=== PATIENT | female | born 1995 | race Caucasian/White ===

== ENCOUNTER → 2016-10-26 | Outpatient (CLI) | payer BC | END | disposition home or self-care (01) | LOC: C.PAPS 08:39 | PROVIDERS: ATTEND Obstetrics & Gynecology | DX: Z01.419 Encounter for gynecological examination (general) (routine) without abnormal findings (principal) ==

== ENCOUNTER → 2016-10-26 | Outpatient (CLI) | payer BC ==
[2016-10-30 11:34] LABS: CHLAMYDIA TRACH RNA*** NOT DETECTED (NOT DETECTED); GC (NEIS GONORRHOEAE)RNA** NOT DETECTED (NOT DETECTED)
== END | disposition home or self-care (01) ==
LOC: C.LABSPEC 17:55
PROVIDERS: ATTEND Obstetrics & Gynecology
DX: Z01.419 Encounter for gynecological examination (general) (routine) without abnormal findings (principal)

== ENCOUNTER 2018-08-09 10:47 | Observation (INO) ==
--- NOTE | 2018-08-04 13:27 | PAT Medication Instructions ---
Medication Instructions Date of Service August 04, 2018 Home Medications ibuprofen 200 mg PO QID NEEDED ASK your surgeon for instructions ibuprofen 200 mg PO QID NEEDED Take morning of surgery NOTHING TO EAT OR DRINK AFTER MIDNIGHT Other Notes If you have any questions please call us at [phone] or [phone] or [phone] or [phone]
--- NOTE | 2018-08-04 13:31 | Anesthesiology Consultation ---
Date of Service August 04, 2018 Assessment & Plan (1) Encounter for pre-operative examination: Chart Review Chart Review: Patient seen in Pre Admission Testing Teaching & Discussion Pre-Anesthesia Teaching/Discussion Notes: Instructed NPO after midnight before surgery, except medications with 15 cc of water. Medication instructions provided according to the PAT guidelines. History Surgery Operation Date: 08/09/18 07:30 Proposed Procedures p Bilateral Reduction Mammoplasty - Daphney Lee MD Height/Weight Height: 5 ft Weight: 65.771 kg Allergies Allergy/AdvReac Type Severity Reaction Status Date / Time No Known Allergies Allergy Mild Unverified 07/28/18 13:23 Medications Home Medications Medication Instructions Recorded Confirmed Last Taken ibuprofen 200 mg PO QID PRN 07/28/18 07/28/18 Unknown Past Medical History Medical History PCOS (polycystic ovarian syndrome) Past Surgical History Surgical History History of tonsillectomy History of wisdom tooth extraction Social History Smoking Status: Never smoker Do You Dip or Chew Tobacco: No Hx Alcohol Use: Yes Alcohol type: wine alcohol intake frequency: a few times a month Hx Substance Use: No substance use type: does not use Review of Systems Patient denies chest pain, shortness of breath, dyspnea on exertion, joint pain, reflux, cough, wheezing, palpitations. Physical Exam Vital Signs BP: P: R: T: SPO2:
--- NOTE | 2018-08-04 13:51 | Anesthesiology Consultation ---
Date of Service August 04, 2018 Assessment & Plan (1) Encounter for pre-operative examination: Chart Review Chart Review: Acceptable Risk for Surgery and Patient seen in Pre Admission Testing Consults Requested none Teaching & Discussion Pre-Anesthesia Teaching/Discussion Notes: Instructed NPO after midnight before surgery, except medications with 15 cc of water. Medication instructions provided according to the PAT guidelines. History Surgery Operation Date: 08/09/18 07:30 Proposed Procedures p Bilateral Reduction Mammoplasty - Daphney Lee MD Height/Weight Height: 5 ft Weight: 71.2 kg Allergies Allergy/AdvReac Type Severity Reaction Status Date / Time No Known Allergies Allergy Mild Unverified 07/28/18 13:23 Medications Home Medications Medication Instructions Recorded Confirmed Last Taken ibuprofen 200 mg PO QID PRN 07/28/18 07/28/18 Unknown Past Medical History Medical History PCOS (polycystic ovarian syndrome) Exercise / Class Metabolic Activity II 4-5 Yardwork/Stairs/Walk up hill (30 minutes of walking/running per day. Able to climb FOS. Denies CP or SOB. ) Past Surgical History Surgical History History of tonsillectomy History of wisdom tooth extraction Past Anesthesia History No Hx of Anesthesia Complications and No Family Hx of Anesthesia Complications History of PONV No Hx of PONV and Hx of Motion Sickness Social History Smoking Status: Never smoker Do You Dip or Chew Tobacco: No Hx Alcohol Use: Yes Alcohol type: wine alcohol intake frequency: a few times a month Hx Substance Use: No substance use type: does not use Review of Systems Patient denies chest pain, shortness of breath, dyspnea on exertion, reflux, cough, wheezing, palpitations. +Joint Pain (Knees) Physical Exam Vital Signs BP: 132/64 P: 86 R: 14 T: 98.6 SPO2: 99% on RA ENMT Thyromental Distance: > or= 3.5 Finger Breadths (3.5) Mallampati Class: I Permanent retainer Neck normal visual inspection and trachea midline; neck extension not limited Respiratory normal respiratory effort Auscultation: lungs clear to auscultation bilaterally Cardiovascular Rate/Rhythm: regular rate and regular rhythm Heart Sounds: no murmur Vessels: no carotid bruit Neurologic moves all extremities Psychiatric Orientation: alert and oriented x 3 Testing Laboratory Results 08/04/18 14:00 08/04/18 14:00 08/04/18 14:00 PT 10.4 INR 1.0 APTT 26.8
[2018-08-04 14:48] LABS: Basophils # (auto) 0.01 K/uL (0-0.2); Basophils % (auto) 0.2 %; Eosinophils # (auto) 0.02 K/uL (0-0.5); Eosinophils % (auto) 0.3 %; Hemoglobin 12.4 g/dL (12.0-16.0); Immature Granulocytes # (auto) 0.01 K/uL (0.00-0.02); Immature Granulocytes % (auto) 0.2 %; Lymphocytes # (auto) 1.78 K/uL (1.2-3.4); Lymphocytes % (auto) 27.6 %; Mean Corpuscular Hgb Conc 33.5 g/dL (32-36); Mean Corpuscular Volume 86.2 fL (80-100); Mean Platelet Volume 10.7 fL (7.4-10.4); Monocytes % (auto) 6.2 %; Neutrophils # (auto) 4.24 K/uL (1.4-6.5); Neutrophils % (auto) 65.5 %; Platelet Count 311 K/uL (130-400); RDW Coefficient of Variation 12.9 % (11.5-14.5); Red Blood Count 4.29 M/uL (4.2-5.4); White Blood Count 6.46 K/uL (4.8-10.8)
[2018-08-04 14:56] LABS: Partial Thromboplastin Time 26.8 Seconds (21.0-31.0); Prothrombin Time 10.4 Seconds (9.0-12.0)
[2018-08-04 15:06] LABS: BUN Creatinine Ratio 22.1 (10-20); Calcium 9.7 mg/dl (8.5-10.1); Creatinine Clr Calc Pharmacy 100.5 ml/min; Est GFR (African American) 127.2; Est GFR (Non-African American) 109.8; Potassium 3.7 mmol/L (3.5-5.1)
[~2018-08-09 10:47] MED LIST: CEFAZOLIN 2000MG 2,000 MG/15 ML SYR IV SCH; GLYCOPYRROLATE 0.2 MG/ML VIAL ONE; LARYING-O-JET KIT (LTA) ONE; LIDOCAINE HCL 2% 2 ML VIAL/AMP(20MG/ML) INFIL ONE; LR 15ML/HR IV SCH; MIDAZOLAM HCL 1 MG/ML 2ML VIAL ONE; NEOSTIGMINE METHYLSULFATE 5 MG/5 ML SYR ONE; ONDANSETRON INJ 2 MG/ML 2 ML VIAL ONE; PHENYLEPHRINE 100MCG/ML 5ML SYR ONE; PHENYLEPHRINE HCL 10 MG/ML VIAL ONE; PROPOFOL IV EMULSION 10 MG/ML 20 ML VIAL IV ONE; ROCURONIUM BROMIDE 10 MG/ML 5 ML VIAL ONE; ePHEDrine sulfate 50 MG/ML SYR ONE; fentaNYL citrate 100 MCG/2 ML VIAL ONE
[2018-08-09] MEDS ORDERED: SCOPOLAMINE 1.5 MG TDSY TD ONE (11:31)
[2018-08-09] MEDS ORDERED: HYDROmorphone INJ 1 MG/ML SYRINGE IV PRN (11:31)
[2018-08-09] MEDS ORDERED: fentaNYL citrate 100 MCG/2 ML VIAL IV PRN (11:31)
[2018-08-09] MEDS ORDERED: ePHEDrine sulfate 50 MG/ML AMP IV PRN (11:31)
[2018-08-09] MEDS ORDERED: ATROPINE SULFATE 0.1 MG/ML 10ML SYR IV PRN (11:31)
[2018-08-09] MEDS ORDERED: ONDANSETRON INJ 2 MG/ML 2 ML VIAL IV PRN ×2 (11:31→17:23)
[2018-08-09] MEDS ORDERED: SCOPOLAMINE 1.5 MG TDSY ONE (11:39)
--- NOTE | 2018-08-09 12:20 | History & Physical Bridge Note ---
Date of Service August 09, 2018 History & Physical Bridge Note I have examined the patient, reviewed the History & Physical and in the interval since the performance of the History & Physical I have noted the following changes of clinical significance: no changes noted
[2018-08-09] MEDS ORDERED: LIDOCAINE/EPINEPHRINE 1% 20 ML VIAL ONE (12:21)
[2018-08-09] MEDS ORDERED: BUPIVACAINE 0.25% 30 ML VIAL ONE (12:21)
[2018-08-09] MEDS ORDERED: fentaNYL citrate 100 MCG/2 ML VIAL ONE (13:07)
[2018-08-09] MEDS ORDERED: ACETAMINOPHEN 1000 MG/100 ML IV IV ONE (13:11)
--- NOTE | 2018-08-09 15:58 | Post Operative Brief Note ---
Immediate Post Op Note v1 Date of Surgery August 09, 2018 Pre & Post Diagnosis Operation Date: 08/09/18 11:50 Pre-Op Diagnosis: Symptomatic Bilateral Macromastia Post-Op Diagnosis: Symptomatic Bilateral Macromastia Procedure Operation Date: 08/09/18 11:50 Actual Procedures p Bilateral Reduction Mammoplasty(Not Applicable) - Daphney Lee MD Surgeon Daphney Lee MD Framing Machine Tender Elda Brennan PA-C Estimated Blood Loss 25 Findings Consistent with Post-Op Diagnosis Drains [place] Drain (bilateral, 15fr x2)
[2018-08-09] MEDS ORDERED: PROPOFOL IV EMULSION 10 MG/ML 20 ML VIAL IV ONE (15:59)
--- NOTE | 2018-08-09 16:00 | Operative Report ---
Post Operative Report Pre & Post Diagnosis Operation Date: 08/09/18 11:50 Pre-Op Diagnosis: Symptomatic Bilateral Macromastia Post-Op Diagnosis: Symptomatic Bilateral Macromastia Procedure Operation Date: 08/09/18 11:50 Actual Procedures p Bilateral Reduction Mammoplasty(Not Applicable) - Daphney Lee MD Surgeon Daphney Lee MD Belt Back Operator Elda Brennan PA-C Estimated Blood Loss 25 Findings Consistent with Post-Op Diagnosis Specimens left breast 692 grams, right breast 566 grams to pathology Drains JPx2 Anesthesia Type General Complications none Indications back, neck and shoulder pain due to macromastia Description of Procedure The risks, benefits, and alternatives of the procedure were explained to the patient who agreed and signed consent. She was identified and marked in the preoperative holding area. She was brought to the operating room where she was positioned supine and placed under general anesthesia without incident. Surgical site was prepped and draped sterilely. A time-out procedure was performed. I began with the left side. Markings were reassessed and a 7 cm pedicle was marked. 1% lidocaine with epinephrine was used to anesthetize the planned incisions. A 38 mm cookie cutter was used to circumscribe the nipple-areolar complex. The previously marked 7 cm pedicle was incised using a 15 blade scalpel and deepithelized. I began with the medial dissection of the pedicle using electrocautery. Cautery was used to incise through dermis and breast parenchyma down to the chest wall, taking care not to undermine the pedicle during dissection. A similar procedure was undertaken on the lateral aspect of the pedicle again taking care not to undermine. Lastly, the pedicle was dissected out superiorly using electrocautery and this was carried down to the chest wall as well. I then began with excision of the medial breast tissue followed by lateral aspect of the breast tissue and surrounding keyhole incision. A 15 blade scalpel was used to make the inframammary fold incision and electrocautery was used to deepen the incision through dermis and breast parenchyma. Dissection was then carried superiorly to the level of the superior incision. Superior incision was then incised using a 15 blade scalpel and again dissected using electrocautery. This was undertaken laterally and then around the keyhole portion of the incision. Care was taken t o leave some fat on the lateral pectoralis fascia in order to protect the T4 intercostal nerve. Hemostasis was achieved with electrocautery. The specimen was passed off in its entirety for weighing. Additional resection was undertaken from the superior flap in order to facilitate closure of the breast and to provide the best shape. The total resection weight of the left breast was 692 grams. The wound was irrigated with saline and hemostasis was achieved with electrocautery. 0.25% Marcaine plain was used to anesthetize the incisions as well as the pectoralis fascia. A 15 Syriac Sergey drain was brought out through a separate stab incision. The nipple-areolar complex was brought into the keyhole using 2-0 Vicryl deep dermal suture. The wound was closed first in a lateral to mid breast direction and then medial to mid breast direction using 2-0 Vicryl deep dermal sutures. Vertical limb was also approximated using 2-0 Vicryl deep dermals and the nipple-areolar complex was inset using 2-0 Vicryl deep dermal sutures. Next, the superficial dermal layer was closed using 2-0 PDO running Quill suture along the inframammary fold and 3-0 PDS interrupted dermal sutures along the vertical limb and nipple- areolar complex. Lastly 3-0 Monocryl running subcuticular suture was placed. A similar procedure was undertaken on the right side with maximal excision weight of 566 grams. Breasts were symmetric and nipple-areolar complexes were viable bilaterally following wound closure. Dermabond Prineo was applied along the inframammary fold and vertical limb and Dermabond was placed around the nipple-areolar complex. Dry dressings and a surgical bra were placed. The patient was awakened and transferred to recovery room in satisfactory condition. Elda Brennan PA-C was present and scrubbed throughout the procedure and was instrumental in providing retraction during dissection of the pedicle and assisting in wound closure. I attest to the content of the Intraoperative Record and any orders documented therein. Any exceptions are noted below.
[2018-08-09] MEDS ORDERED: ONDANSETRON INJ 2 MG/ML 2 ML VIAL ONE (16:31)
[2018-08-09] MEDS ORDERED: ONDANSETRON INJ 2 MG/ML 2 ML VIAL IV STA (16:41)
--- NOTE | 2018-08-09 16:57 | Anesthesiology Progress Note ---
Date of Service August 09, 2018 Anesthesia Post Procedure Vital Signs Vital Signs: Temp Pulse Pulse Resp BP Pulse Ox 08/09/18 16:49 61 16 100/49 L 100 08/09/18 16:39 36.1 C L 63 16 94/51 L 100 08/09/18 16:30 64 16 96/54 L 100 08/09/18 16:20 67 16 96/55 L 100 08/09/18 16:10 36.0 C L 104 H 16 116/64 100 08/09/18 11:10 36.9 C 104 H 18 116/84 99 Pain Intensity Bilateral Breast: Pain Intensity: 2 Transfer of Care Handoff Completed per policy Notes Mental Status: alert / awake / arousable and participated in evaluation Patient Amnestic to Procedure: Yes Nausea / Vomiting: adequately controlled Pain: adequately controlled Airway Patency, RR, SpO2: stable & adequate BP & HR: stable & adequate Hydration State: stable & adequate Anesthetic Complications: no major complications apparent and Pt Satisfied with anesthetic care
[2018-08-09] MEDS ORDERED: PROMETHAZINE HCL 12.5 MG in SODIUM CHLORIDE 0.9% 50 ML IV PRN (17:23)
[2018-08-09] MEDS ORDERED: MoRPHine SULFATE 10 MG/ML CARP/VIAL IV PRN (17:23)
[2018-08-09] MEDS ORDERED: ACETAMINOPHEN 325 MG TAB PO PRN (17:23)
[2018-08-09] MEDS ORDERED: DiphenhydrAMINE HCL 50 MG/ML VIAL IV PRN (17:23)
[2018-08-09] MEDS ORDERED: MoRPHine SULFATE 4 MG/ML 1 ML CARP\\VIAL IV PRN (17:23)
[2018-08-09] MEDS ORDERED: MoRPHine SULFATE 2 MG/ML CARP IV PRN (17:23)
[2018-08-09] MEDS ORDERED: OXYCODONE/ACETAMINOPHEN 5mg/325mg TAB PO PRN ×2 (17:23)
[2018-08-09] MEDS ORDERED: OXAZEPAM 10 MG CAPSULE PO PRN (17:23)
[2018-08-09] MEDS: CHECK SCOPOLAMINE PATCH PLACEMENT SCH (17:59)
[2018-08-09] MEDS ORDERED: D5W AND 1/2NSS + 20MEQ KCL 20 MEQ/1,000 ML BAG IV SCH (18:00)
[2018-08-09] MEDS: CEFAZOLIN 2000MG 2,000 MG/15 ML SYR IV SCH (21:38)
[2018-08-10] MEDS: CHECK SCOPOLAMINE PATCH PLACEMENT SCH ×2 (00:29→09:02)
[2018-08-10] MEDS: CEFAZOLIN 2000MG 2,000 MG/15 ML SYR IV SCH (05:59)
--- NOTE | 2018-08-10 08:05 | Surgery Progress Note ---
Date of Service August 10, 2018 Assessment & Plan (1) Breast hypertrophy: s/p bilateral breast reduction POD#1. Patient feeling well. Drains removed. D/C home today with office f/u tomorrow Subjective Patient resting comfortably. Has excellent pain control. Is ambulating and tolerating a regular diet. Physical Exam Constitutional: WD/WN, vitals as above no acute distress Skin: + incision (CDI, nipples viable ) Results & Data Vital Signs (Past 12 Hours) Vital Signs Temp Pulse Resp BP BP Pulse Ox 08/10/18 07:21 36.9 C 80 16 92/64 L 96 08/10/18 04:10 37.2 C 71 18 93/60 L 95 08/09/18 23:30 36.7 C 79 18 99/67 L 96 08/09/18 20:18 36.7 C 84 18 99/63 L 96
--- NOTE | 2018-08-10 08:08 | Discharge Summary ---
Date of Service August 10, 2018 Admission HPI Per Admitting Provider see admission H&P Admission Exam Per Admitting Provider see admission H&P Principal Diagnosis symptomatic macromastia Discharge Exam Constitutional WD/WN, vitals as above no acute distress Skin + incision (CDI, nipples viable ) Discharge Data Allergies Allergy/AdvReac Type Severity Reaction Status Date / Time No Known Allergies Allergy Mild Unverified 08/09/18 11:05 Procedures Performed Operation Date: 08/09/18 11:50 Actual Procedures p Bilateral Reduction Mammoplasty(Not Applicable) - Daphney Lee MD Hospital Course (1) Breast hypertrophy: Patient [facility] with history of symptomatic macromastia. She was taken to the OR and underwent bilateral breast reduction. There were no intraoperative complications. She was taken to recovery and transferred to med/surg for observation. On POD#1, she was feeling well. She was tolerating a regular diet and ambulating. On exam, her vitals were stable. Her incisions were CDI and nipples viable. Her drains were removed. She was discharged home with instructions to follow-up in the office in one day. Total Time Total Time Spent Total Time Spent (In Minutes): 10 Total Time Includes: Examination of the Patient, Discharge Planning and Medication Reconciliation Discharge Plan Discharge Items Patient Disposition: Home - Self-Care Reason For Visit: Symptomatic Macromastia Discharge Diagnosis: s/p bilateral breast reduction Discharge Goals: Decrease discomfort Activity: As commented below Non-emergency contact: Surgeon Call non-emergency contact if: your pain is not controlled, you have a fever, your wound has increased redness and your wound has increased drainage Follow-up/Referrals: PCP,NO [Primary Care Provider] - Diet: Regular Addtl Provider Instructions: ACTIVITY RECOMMENDATIONS: __Normal activities _x_No bending, lifting or straining __No driving __Driving allowed when you are off pain medications _x_Walking permitted __You should have help at home for ___ days DRESSINGS: __No dressings required _x_Keep dressings dry/in place until first office visit __Remove dressings ___ and leave dressings off __Apply ice ___ days __Remove dressings and reapply garment __Apply antibiotic ointment (Bacitracin, Neosporin, etc) to wounds 3-4 times/day for 10 days BATHING: _x_Keep dressings dry x__Sponge bathing permitted __Showering permitted _x_No swimming, hot tubs or soaking in a tub MEDICATIONS: Resume previous medications unless instructed otherwise by your surgeon. _x_Do not use aspirin, Motrin, Advil or Ibuprofen as these may promote bleeding. Please use Tylenol. _x_Prescription(s) provided: pain medication was provided at your last office visit OTHER INSTRUCTIONS: __Record drain output 2-3 times per day SPECIAL CARE INSTRUCTIONS: * It is normal to have a mild fever after surgery. If your temperature is higher than 101.5 degrees F, please call the office at [phone]. * Constipation is a typical side effect of pain medication. An vkht-xbz-oygyamz stool softener will help relieve this. * Leaking around surgical drains may occur and should not cause concern. Sometimes these drains become clogged. If this happens, remove the bulb and milk the clot out of the tube, then replace the bulb. * Drainage from wounds after liposuction is normal and should be expected. Garments will become soiled. You should protect furniture and bedding. This drainage should mostly subside within 2-3 days. Leave garments in place unless instructed to remove them. * If you have unusual drainage from a wound or are concerned you have an infection or have any questions or concerns, please call the office at [phone]. FOLLOW UP VISIT: If not already scheduled, please call the office, , when you return home after surgery to schedule an appointment to be seen in __1_ days. Prescriptions: Discontinued ibuprofen 200 mg Tablet 200 mg PO QID PRN (Reason: Pain) RF: 0 Stand-Alone Forms: [facility] Discharge Orders: Discharge Order (Routine); Ordered 08/10/18 Ordered By: Elda Brennan Admission Data Admit Date/Time: 08/09/18 16:26 Attending Provider: Daphney Lee Admit Provider: Daphney Lee Primary Care Provider: PCP,NO Service: Surgical Services Other Pending Studies at Discharge: Yes Studies:: pathology
[2018-08-10] MEDS ORDERED: MULTIVITAMIN TAB PO SCH (09:00)
== END 2018-08-10 09:45 | disposition home or self-care (01) ==
LOC: ASU 10:47 → 3N 10:47

== ENCOUNTER 2021-09-30 07:34 | Inpatient (IN) ==
[2021-09-30] MEDS ORDERED: OXYTOCIN 30 UNITS/500 ML BAG IV PRN ×3 (08:40→17:56)
[2021-09-30 08:54] LABS: Hematocrit (blood only) 32.4 % (34.1-44.9); Hemoglobin 10.8 g/dl (12.0-16.0); Mean Corpuscular Hgb Conc 33.3 g/dL (32.0-36.0); Mean Platelet Volume 11.9 fL (9.4-12.3); Platelet Count 233 K/uL (130-400); RDW Coefficient of Variation 12.3 % (11.5-14.5); White Blood Count 9.16 K/ul (4.8-10.8)
--- NOTE | 2021-09-30 09:14 | History & Physical Report ---
Date of Service September 30, 2021 Assessment & Plan (1) Encounter for induction of labor: Plan: Plan for IOL with pitocin, arom if necessary. GBS neg. Anticipate . Admission and Anticipated Discharge Date Admission Date: September 30, 2021 History of Present Illness Primary Care Provider: Carlos Brush DO Damir Chase is a 25 yo female currently at 40+3WGA with an BREN 09/27/2021 as determined by US who is here for IOL. Her was uncomplicated. Endorses painful (3-4/10), irregular contractions; movement present; denies fluid loss; denies bloody show External FHT and external uterine monitors used; category 1 tracing; normal FHT variability Had regular appointments with OB. Labs: (09/30/2021) Blood type: A+ Antibody screen: neg Hgb: 10.8 (today) Hct: 32.4 (today) WBC: 9.16 (today) Plt: 233 (today) Rubella: immune VDRL/RPR: neg Gonorrhea: neg Chlamydia: neg HIV: neg HbSAg: neg GBS: neg Other screens: cff-DNA: N/A CF: N/A SMA: N/A Allergies Allergy/AdvReac Type Severity Reaction Status Date / Time No Known Allergies Allergy Mild Verified 09/29/21 19:21 Home Medications Medication Instructions Recorded Confirmed Type prenat.vits,felipe,[id number] 1 tab PO DAILY 03/03/21 09/30/21 History Patient History Medical History (Updated 09/30/21 @ 09:32 by Kathryn Willoughby DO) Biliary colic PCOS (polycystic ovarian syndrome) Varicella vaccine Surgical History History of tonsillectomy 1998 History of wisdom tooth extraction 2008 S/P bilateral breast reduction 2018 Family History Brother Family history of reaction to anesthesia PONV Grandfather (Maternal) Myocardial infarction Mother Hypertension Denies family history of Ovarian cancer Diabetes Breast cancer Lung cancer Colorectal cancer Cancer Uterine cancer Social History (Updated 09/30/21 @ 07:47 by Laisha Callaway) Smoking Status: Never smoker Second Hand Exposure: No; Hx Alcohol Use: No Hx Substance Use: No Preferred Language: Faroese Communication Ability: Effective Visual Impairment: No Limitations Hearing Ability: Normal Tunnel Kiln Operator Required: No Beliefs That Will Affect Care: None marital status: marital status details: Simone Schuster (27) [phone] Current Living Situation: Spouse Current Living Situation Comment: and 1 dog current occupational status: employed current occupation: Teacher at [employer] How many Children do You have: 0 How many Children do You have Comment: is currently Other Information That Helps Us Care for You: No Feels Safe at Home: Yes Safety Concerns: Feels Safe At This Time Childhood Exposure to Second-Hand Smoke: No caffeine: No Dental Care, Regularly: No Physical Activity Frequency: Does not Exercise Seatbelt Use: always Sunscreen Use: Yes Do you think of yourself as: straight/heterosexual Gender Identity: Female Assistive Devices: None Review of Systems Denies fever, chills, sweats. Denies SOB, difficulty breathing, chest pain, palpitations, and chest pressure. Denies breast pain. Denies dysuria. Denies headache or changes in vision. Physical Exam Physical Exam: General: Alert and oriented. No acute distress CV: Regular rate and rhythm. No murmurs. Respiratory: CTA bilaterally. No rhonchi, wheezes, or crackles. No increased work of breathing. Abdomen: Gravid; Soft, nontender upon palpation Pelvic: Dilated [address] Nieves Lower extremities: No LE edema. No deep calf pain. Kanika's negative bilaterally. Results & Data ([facility]) Vital Signs (Past 12 Hours) Vital Signs Temp Pulse Resp BP 09/30/21 07:41 18 09/30/21 07:41 36.7 C 18 09/30/21 07:42 96 H 116/81 Supervising Physician Co-Signing Physician Notes Resident Physician Supervision Note: I interviewed and examined the patient. Discussed with Dr. Willoughby and agree with findings and plan as documented in the note. Any exceptions or clarifications are listed here: 25 y/o G1 at 40 3/7 wga presents for eIOL. Askew bulb found to be in the vagina and removed, SVE 50/-2. PNC uncomplicated other than poor wt gain. Will start pit, GBS neg, epidural PRN Documented By: Mere Nieves MD Resident Activity Tracking Resident Involvement: Resident Care Provided Care Provided: OB Delivery
[2021-09-30] MEDS: LACTATED RINGER'S 1,000 ML IV PRN ×3 (09:18→17:05)
--- NOTE | 2021-09-30 12:25 | Labor Progress Brief Note ---
Date of Service September 30, 2021 Subjective Notices the cramping but not painful Assessment & Plan (1) Encounter for induction of labor: Plan: 25 y/o G1 at 40 3/7 wga presents for eIOL VSS Fetus cat 1 Labor - pit a 8, nor s/p arom and see if helps progression. On exam this timing introitus seems tighter but hard to say if bony or tissue, discussed this w/ pt and her but will see how labor progresses, they verbalize understanding GBS neg epidural prn Admission and Anticipated Discharge Date Admission Date: September 30, 2021 Physical Exam Genitourinary: Manual OB Exam: + cervical dilation 3 cm, + cervical effacement 70%, + station -2 and + amniotic fluid (arom) clear OB Exam Monitor Tracing: + external FHT monitor used, + external uterine monitor used (q3) and + category I (140/mod/+accel/-decel) Results & Data ([facility]) Vital Signs (Past 12 Hours) Vital Signs Temp Pulse Resp BP 09/30/21 11:59 74 128/82 09/30/21 10:58 97.9 F 84 18 127/82 09/30/21 10:23 72 123/84 09/30/21 09:18 76 135/84 09/30/21 07:41 18 09/30/21 07:41 98.1 F 18 09/30/21 07:42 96 H 116/81 Coding Level of Care Code None Diagnoses Encounter for induction of labor Z34.90
[2021-09-30] MEDS ORDERED: ePHEDrine sulfate 50 MG/ML AMP ONE (13:10)
[2021-09-30] MEDS ORDERED: LIDOCAINE 2%/EPINEPHRINE 1:200,000 20 ML SDV ONE (13:11)
[2021-09-30] MEDS ORDERED: SODIUM CHLORIDE 0.9% INJ 10 ML VIAL ONE (13:11)
[2021-09-30] MEDS ORDERED: BUPIVACAINE 0.25% 30 ML VIAL ONE (13:11)
[2021-09-30] MEDS ORDERED: fentaNYL citrate 100 MCG/2 ML VIAL ONE (13:11)
[2021-09-30] MEDS ORDERED: fentaNYL 2MCG/ML ROPIVACAINE 1.25MG/ML 100 ML BAG EPI ONE (13:11)
[2021-09-30] MEDS ORDERED: ONDANSETRON INJ 2 MG/ML 2 ML VIAL IV PRN (13:30)
[2021-09-30] MEDS ORDERED: NALBUPHINE HCL INJ 10 MG/ML AMP IV PRN (13:30)
[2021-09-30] MEDS ORDERED: diphenhydrAMINE 50 MG/ML VIAL IV PRN (13:30)
[2021-09-30] MEDS ORDERED: NALOXONE HCL 0.4 MG/1 ML VIAL/CARP IV PRN (13:30)
[2021-09-30] MEDS ORDERED: NALOXONE HCL 1 MG in SODIUM CHLORIDE 0.9% 1000ML 1,000 ML IV PRN (13:30)
[2021-09-30] MEDS ORDERED: ePHEDrine sulfate 50 MG/ML AMP IV PRN (13:30)
[2021-09-30] MEDS ORDERED: fentaNYL 2MCG/ML ROPIVACAINE 1.25MG/ML 100 ML BAG EPI PRN (13:30)
--- NOTE | 2021-09-30 13:30 | Anesthesiology Consultation ---
Date of Service September 30, 2021 Assessment & Plan ASA ASA2 Proposed Anesthesia Anesthesia Type: Labor Epidural Risk / Benefits Reviewed With: PT / POA / Parent / Guardian, Accepts Plan and Informed Consent Obtained History Height/Weight Height: 5 ft Weight: 74.843 kg Allergies Allergy/AdvReac Type Severity Reaction Status Date / Time No Known Allergies Allergy Mild Verified 09/29/21 19:21 Medications Home Medications Medication Instructions Recorded Confirmed Last Taken prenat.vits,felipe,sll-gmxj-pgkoi 1 tab PO DAILY 03/03/21 09/30/21 09/29/21 09:00 Active Medications Generic Name Dose Route Start Last Admin Trade Name Freq PRN Reason Stop Dose Admin Oxytocin 30 units in 500 mls @ 8 mls/hr 09/30/21 08:40 09/30/21 11:00 Pitocin IV 10/02/21 08:39 0.48 units/hr .Q24H PRN 8 mls/hr Labor Induction/Augmentation Titration Protocol 0.48 UNITS/HR Lactated Ringer's 1,000 mls @ 125 mls/hr 09/30/21 08:40 09/30/21 14:10 Lr IV 10/02/21 08:39 125 mls/hr .Q8H PRN Infusion L&D Protocol Protocol Past Medical History Medical History (Updated 09/30/21 @ 09:32 by Kathryn Willoughby DO) Biliary colic PCOS (polycystic ovarian syndrome) Varicella vaccine Exercise / Class Metabolic Activity II 4-5 Yardwork/Stairs/Walk up hill Past Family History Family History Brother Family history of reaction to anesthesia PONV Grandfather (Maternal) Myocardial infarction Mother Hypertension Denies family history of Ovarian cancer Diabetes Breast cancer Lung cancer Colorectal cancer Cancer Uterine cancer Past Surgical History Surgical History History of tonsillectomy 1998 History of wisdom tooth extraction 2008 S/P bilateral breast reduction 2018 Past Anesthesia History No Hx of Anesthesia Complications and No Family Hx of Anesthesia Complications History of PONV No Hx of PONV and No Hx of Motion Sickness Social History Smoking Status: Never smoker Hx Alcohol Use: No alcohol intake frequency: a few times a month Hx Substance Use: No substance use type: does not use Review of Systems denies fever/cough/ colds/ chest pain/ SOB/ GUSTABO denies GUSTABO Physical Exam Vital Signs Last Vital Signs Temp 36.9 C 09/30/21 13:30 Pulse 65 09/30/21 14:25 Resp 18 09/30/21 14:15 BP 122/78 09/30/21 14:25 Pulse Ox 99 09/30/21 14:23 ENMT Mouth: no TMJ abnormality and no dentition abnormality Thyromental Distance: > or= 3.5 Finger Breadths Mallampati Class: II Neck neck extension not limited Respiratory normal respiratory effort; no respiratory distress Auscultation: lungs clear to auscultation bilaterally Cardiovascular Rate/Rhythm: regular rate and regular rhythm Neurologic moves all extremities Psychiatric Orientation: alert and oriented x 3 Testing Laboratory Results 09/30/21 08:46
--- NOTE | 2021-09-30 17:51 | Delivery Summary ---
Vaginal Delivery Summary Date of Service September 30, 2021 Vaginal Delivery Summary [facility] PREOPERATIVE DIAGNOSIS: 1. Single intrauterine at 40 3/7 wga 2. Induction of labor POSTOPERATIVE DIAGNOSIS: 1. Single intrauterine at 40 3/7 wga 2. Induction of labor 3. Delivered PROCEDURE: 1. Normal spontaneous vaginal delivery. SURGEON: Mere Nieves MD ANESTHESIA: Epidural. ESTIMATED BLOOD LOSS: 300 mL FLUIDS: Continuous LR. URINE OUTPUT: None. COMPLICATIONS: None. CONDITION: Stable. INDICATIONS: 25 y/o G1 at 40 3/7 wga presented for induction of labor. Askew bulb was placed last evening and removed this morning. She was started on pitocin and underwent artificial rupture of membranes. She received an epidural for pain control and continued to progress to complete and desired to push. FINDINGS: A viable male , weight pending with Apgars of 8 and 9 at 1 and 5 minutes respectively. SPECIMEN: Cord blood OPERATIVE REPORT: The patient progressed to 10 cm, 100% effaced and +2 station, pushed over intact perineum with anesthesia to deliver a viable male , weight and Apgars as above. Head of delivered in MORALES position. Loose body cord delivered through. Body and shoulders were delivered without difficulty. was delivered to maternal abdomen and nursing staff. Delayed cord clamping was performed for 60 seconds. Cord was clamped and cut. Cord blood was obtained. Placenta delivered spontaneously intact with 3-vessel cord. IV oxytocin and fundal massage were given for excellent hemostasis. Vagina, cervix, perineum, and placenta were inspected. Straight cath was placed to identify the urethra in reference to the bilateral periclitoral lacerations that were noted. These were repaired with 4-0 vicryl with care to avoid the urethra. A first degree laceration was also noted and repaired with 3-0 vicryl. There was excellent hemostasis. Sponge and needle counts correct x2. No sponges were left behind. Mother and stable in immediate period. [facility] Vaginal Delivery Charge Vaginal Delivery Codes: 71634 global code for the antepartum, delivery, and post- Delivery Type Details: [facility]
[2021-09-30] MEDS ORDERED: HYDROCORTISONE ACETATE 25 MG SUPP PR PRN (17:56)
[2021-09-30] MEDS ORDERED: BENZOCAINE 20% AER SPR 82.5 GM CAN EXT PRN (17:56)
[2021-09-30] MEDS ORDERED: bisacodyL 10 MG SUPP PR PRN (17:56)
[2021-09-30] MEDS ORDERED: DIPHTHERIA/TETANUS/PERTUSSIS 0.5 ML SYR/VIAL IM ONE (17:56)
[2021-09-30] MEDS ORDERED: ACETAMINOPHEN 325 MG TAB PO PRN (17:56)
--- NOTE | 2021-09-30 19:04 | Anesthesiology Progress Note ---
Date of Service September 30, 2021 Anesthesia Post Procedure Vital Signs Vital Signs: Temp Pulse Resp BP Pulse Ox 09/30/21 18:45 18 09/30/21 18:30 18 09/30/21 18:15 18 09/30/21 18:00 18 09/30/21 17:45 36.9 C 18 09/30/21 18:59 75 115/58 L 09/30/21 18:46 82 114/55 L 09/30/21 18:29 94 H 111/57 L 09/30/21 18:14 116/65 09/30/21 17:59 107 H 119/66 09/30/21 17:44 118 H 112/57 L 09/30/21 17:29 109 H 116/79 09/30/21 17:14 157 H 132/94 09/30/21 17:08 119 H 100 09/30/21 17:03 96 H 98 09/30/21 17:01 71 142/73 H 09/30/21 16:58 75 82 L 09/30/21 16:53 66 97 09/30/21 16:50 67 87 L 09/30/21 16:48 68 100 09/30/21 16:44 70 127/61 09/30/21 16:43 68 100 09/30/21 16:38 63 96 09/30/21 16:39 63 86 L 09/30/21 16:33 65 97 09/30/21 16:28 67 99 09/30/21 16:29 63 125/77 09/30/21 16:27 66 86 L 09/30/21 16:23 66 93 09/30/21 16:18 76 99 09/30/21 16:13 81 89 L 09/30/21 16:14 78 130/88 09/30/21 16:10 80 89 L 09/30/21 16:08 64 94 09/30/21 16:05 76 78 L 09/30/21 16:03 61 98 09/30/21 16:00 20 09/30/21 16:00 20 09/30/21 15:58 61 133/83 97 09/30/21 15:53 65 80 L 09/30/21 15:52 67 89 L 09/30/21 15:48 58 L 96 09/30/21 15:45 64 86 L 09/30/21 15:44 60 134/85 09/30/21 15:43 63 97 09/30/21 15:38 60 97 09/30/21 15:33 64 96 09/30/21 15:30 63 18 147/77 H 09/30/21 15:28 65 98 09/30/21 15:23 60 98 09/30/21 15:18 69 98 09/30/21 15:14 59 L 133/81 09/30/21 15:13 62 99 09/30/21 15:08 64 95 09/30/21 15:03 71 96 09/30/21 15:00 36.7 C 63 18 87 L 09/30/21 14:58 62 99 09/30/21 14:59 65 126/78 09/30/21 14:53 65 99 09/30/21 14:48 73 100 09/30/21 14:45 72 82 L 09/30/21 14:43 75 90 09/30/21 14:05 16 09/30/21 14:05 16 09/30/21 14:30 18 09/30/21 14:30 18 09/30/21 14:40 69 128/83 09/30/21 14:38 70 97 09/30/21 14:35 73 117/84 09/30/21 14:33 65 99 09/30/21 14:31 63 125/80 09/30/21 14:28 75 94 09/30/21 14:25 65 122/78 09/30/21 14:23 69 99 09/30/21 14:15 18 09/30/21 14:15 18 09/30/21 14:20 74 122/77 09/30/21 14:18 67 122/74 99 09/30/21 14:16 75 131/69 09/30/21 14:14 77 136/80 09/30/21 14:13 84 100 09/30/21 14:12 67 123/80 09/30/21 14:10 63 124/80 09/30/21 14:08 72 120/78 100 09/30/21 14:06 64 128/78 09/30/21 14:04 67 126/81 09/30/21 14:03 73 100 09/30/21 14:02 70 128/85 09/30/21 14:00 80 18 126/88 09/30/21 13:58 100 09/30/21 13:58 93 H 09/30/21 13:58 86 122/73 09/30/21 13:53 85 100 09/30/21 13:54 87 82 L 09/30/21 13:48 91 H 100 09/30/21 13:43 94 H 100 09/30/21 13:38 96 H 100 09/30/21 13:30 20 09/30/21 13:30 36.9 C 20 09/30/21 13:33 74 97 09/30/21 13:28 78 99 09/30/21 13:27 78 122/75 09/30/21 13:26 89 88 L 09/30/21 13:23 75 95 09/30/21 13:18 78 100 09/30/21 13:03 70 128/80 09/30/21 12:20 18 09/30/21 12:20 36.7 C 18 09/30/21 11:59 74 128/82 09/30/21 10:58 36.6 C 84 18 127/82 09/30/21 10:23 72 123/84 09/30/21 09:18 76 135/84 09/30/21 07:41 18 09/30/21 07:41 36.7 C 18 09/30/21 07:42 96 H 116/81 Pain Intensity Bilateral Abdomen: Pain Intensity: 0 Transfer of Care Handoff Completed per policy Notes Mental Status: alert / awake / arousable and participated in evaluation Patient Amnestic to Procedure: Yes Nausea / Vomiting: adequately controlled Pain: adequately controlled Airway Patency, RR, SpO2: stable & adequate BP & HR: stable & adequate Hydration State: stable & adequate Anesthetic Complications: no major complications apparent and Pt Satisfied with anesthetic care
[2021-09-30] MEDS: DOCUSATE SODIUM 100 MG CAP PO SCH (23:15)
--- NOTE | 2021-10-01 05:35 | Obstetrical Progress Note ---
Date of Service <Kathryn Dillon Willoughby DO - Last Filed: 10/01/21 06:14> October 01, 2021 Assessment & Plan <Kathryn Carranza DO Case - Last Filed: 10/01/21 06:14> (1) state: Patient is PPD 1 s/p and doing well. - Eating well, voiding well, ambulating well - Vitals reviewed and within normal limits - Pain well controlled - OOB, ambulation, diet progression as tolerated - Blood type: A+, GBS neg, rubella immune - Plan to discharge tomorrow - After discharge, 6 [address] follow up with Dr. Nieves <Mere Nieves MD - Last Filed: 10/01/21 07:04> (1) state: Subjective <Kathryn Carranza DO Case - Last Filed: 10/01/21 06:14> Damir Chase is a 25 yo female who is now PPD #1 following spontaneous vaginal delivery at 40 weeks. Reports feeling well this morning. She endorses abdominal cramping and 3/10 pain well managed so far without analgesics. Voiding well. Tolerating regular meals overnight and able to ambulate some. She has passed gas but no bowel movements. Persistent lochia with some improvement this morning. Currently breast feeding with some supplemental bottle feeds. Review of Systems Denies fever, chills, sweats. Denies SOB, difficulty breathing, chest pain, palpitations, and chest pressure. Denies breast pain. Denies dysuria. Denies headache or changes in vision. Physical Exam <Kathryn Dillon Willoughby DO - Last Filed: 10/01/21 06:14> General: Alert and oriented. No acute distress. CV: Regular rate and rhythm. No murmurs. Respiratory: CTA bilaterally. No rhonchi, wheezes, or crackles. No increased work of breathing. Abdomen: Positive bowel sounds. Soft, nontender, non distended. Uterus: Fundus firm and palpable 1 cm below the umbilicus. Lower extremities: No LE edema. No deep calf pain. Kanika's negative bilaterally. Results & Data ([facility]) <Kathryn Dillon Willoughby DO - Last Filed: 10/01/21 06:14> Vital Signs (Past 12 Hours) Vital Signs Temp Pulse Pulse Resp BP BP Pulse Ox 10/01/21 03:23 36.7 C 77 16 102/66 99 09/30/21 22:54 36.8 C 88 16 125/85 98 09/30/21 20:36 36.5 C 92 H 18 116/83 98 09/30/21 18:45 18 09/30/21 18:30 18 09/30/21 18:15 18 09/30/21 18:00 18 09/30/21 17:45 36.9 C 18 09/30/21 19:59 98 H 117/71 09/30/21 19:43 94 H 116/72 09/30/21 19:28 85 117/71 09/30/21 19:14 89 119/85 09/30/21 18:59 75 115/58 L 09/30/21 18:46 82 114/55 L 09/30/21 18:29 94 H 111/57 L 09/30/21 18:14 116/65 09/30/21 17:59 107 H 119/66 09/30/21 17:44 118 H 112/57 L O2 Del Method 10/01/21 03:23 Room Air 09/30/21 22:54 Room Air 09/30/21 20:36 Room Air 09/30/21 18:45 09/30/21 18:30 09/30/21 18:15 09/30/21 18:00 09/30/21 17:45 09/30/21 19:59 09/30/21 19:43 09/30/21 19:28 09/30/21 19:14 09/30/21 18:59 09/30/21 18:46 09/30/21 18:29 09/30/21 18:14 09/30/21 17:59 09/30/21 17:44 <Mere Nieves MD - Last Filed: 10/01/21 07:04> Co-Signing Physician Notes Resident Physician Supervision Note: I interviewed and examined the patient. Discussed with Dr. Willoughby and agree with findings and plan as documented in the note. Any exceptions or clarifications are listed here: PP1 s/p , doing well. VSS, exam benign and wnl. Continue routine pp care Documented By: Mere Nieves MD Resident Activity Tracking <Kathryn Willoughby, DO - Last Filed: 10/01/21 06:14> Resident Involvement: Resident Care Provided Care Provided: OB Delivery
[2021-10-01] MEDS: PRENATAL VITAMIN 1 TAB PO SCH (08:55)
[2021-10-01] MEDS: IBUPROFEN 600 MG TAB PO PRN ×2 (08:55→15:21)
[2021-10-01] MEDS: FERROUS SULFATE 325 MG TAB PO SCH (08:55)
[2021-10-01] MEDS: DOCUSATE SODIUM 100 MG CAP PO SCH ×2 (08:55→20:13)
[2021-10-01] MEDS ORDERED: bisacodyL 5 MG TABEC PO SCH (20:00)
[2021-10-02] MEDS: IBUPROFEN 600 MG TAB PO PRN (00:03)
--- NOTE | 2021-10-02 05:23 | Obstetrical Progress Note ---
Date of Service <Kathryn Kenzenaidahector - Last Filed: 10/02/21 06:28> October 02, 2021 Assessment & Plan <Kathryn Willoughby - Last Filed: 10/02/21 06:28> (1) state: Patient is PPD 2 s/p and doing well. - Eating well, voiding well, ambulating well - Vitals reviewed and within normal limits - Pain well controlled with ibuprofen 600 mg Q4H PRN - OOB, ambulation, diet progression as tolerated - Blood type: A+, GBS neg, rubella immune - Plan to discharge today - After discharge, 6 week follow up with Dr. Nieves <Rena Faustin MD - Last Filed: 10/02/21 07:04> (1) state: Subjective <Kathryn Willoughby - Last Filed: 10/02/21 06:28> Patient is a 25 yo female who is now PPD #2 following spontaneous vaginal delivery at 40 weeks. Reports feeling well this morning. She denies abdominal cramping and 1-2/10 pain well managed on analgesics. Voiding without issue. Tolerating regular meals overnight and able to ambulate some. She has passed gas and had bowel movements. Persistent lochia with some improvement this morning. Currently breast feeding. Review of Systems Denies fever, chills, sweats. Denies SOB, difficulty breathing, chest pain, palpitations, and chest pressure. Denies breast pain. Denies dysuria. Denies headache or changes in vision. Physical Exam <Kathryn Kenharriet - Last Filed: 10/02/21 06:28> General: Alert and oriented. No acute distress. CV: Regular rate and rhythm. No murmurs. Respiratory: CTA bilaterally. No rhonchi, wheezes, or crackles. No increased work of breathing. Abdomen: Positive bowel sounds. Soft, nontender, non distended. Uterus: Fundus firm and palpable 3 cm below the umbilicus. Lower extremities: No LE edema. No deep calf pain. Kanika's negative bilaterally. Results & Data ([facility]) <Kathryn BrownSekou Willoughby DO - Last Filed: 10/02/21 06:28> Vital Signs (Past 12 Hours) Vital Signs Temp Pulse Resp BP O2 Del Method 08/05/22 00:00 36.8 C 80 16 122/77 Room Air 10/01/21 20:00 36.7 C 82 16 122/80 Room Air <Rena Faustin MD - Last Filed: 10/02/21 07:04> Co-Signing Physician Notes Resident Physician Supervision Note: I interviewed and examined the patient. Discussed with Dr. Willoughby and agree with findings and plan as documented in the note. Any exceptions or clarifications are listed here: [ ] Documented By: Rena Faustin MD, FACOG Resident Activity Tracking <Kathryn Willoughby DO - Last Filed: 10/02/21 06:28> Resident Involvement: Resident Care Provided Care Provided: OB Delivery
[2021-10-02] MEDS: DOCUSATE SODIUM 100 MG CAP PO SCH (08:35)
[2021-10-02] MEDS: PRENATAL VITAMIN 1 TAB PO SCH (08:35)
[2021-10-02] MEDS: FERROUS SULFATE 325 MG TAB PO SCH (08:35)
== END 2021-10-02 11:40 | disposition home or self-care (01) | DRG 807 ==
LOC: 4S1 07:34 → 4E2 21:13
DX: O69.82X0 Labor and delivery complicated by other cord entanglement, without compression, not applicable or unspecified; Z3A.40 40 weeks gestation of pregnancy; Z37.0 Single live birth; O48.0 Post-term pregnancy; O70.0 First degree perineal laceration during delivery

== ENCOUNTER 2023-04-19 14:59 | Inpatient (IN) ==
[2023-04-19] MEDS ORDERED: OXYTOCIN 30 UNITS/NSS 30 UNITS/500 ML BAG IV PRN (15:25)
[2023-04-19] MEDS ORDERED: LIDOCAINE 1% LOCAL 20 ML VIAL INFIL PRN (15:25)
[2023-04-19 15:55] LABS: Hematocrit (blood only) 32.7 % (37.0-47.0); Mean Corpuscular Hemoglobin 29.6 pg (25.0-34.0); Mean Corpuscular Hgb Conc 33.6 g/dL (32.0-36.0); Mean Corpuscular Volume 87.9 fL (80.0-100.0); Mean Platelet Volume 11.2 fL (9.4-12.4); Platelet Count 254 K/uL (130-400); RDW Coefficient of Variation 13.3 % (11.5-14.5); RDW Standard Deviation 42.4 fL (36.4-46.3); Red Blood Count 3.72 M/uL (4.20-5.40); White Blood Count 7.01 K/ul (4.8-10.8)
[2023-04-19] MEDS: LACTATED RINGER'S 1,000 ML IV PRN (19:46)
[2023-04-19] MEDS: OXYTOCIN 30 UNITS/NSS 30 UNITS/500 ML BAG IV PRN (19:49)
--- NOTE | 2023-04-19 20:26 | Anesthesiology Consultation ---
Date of Service April 19, 2023 Assessment & Plan (1) Encounter for pre-operative examination: Chart Review Chart Review: Acceptable Risk for Labor Epidural History Height/Weight Height: 5 ft Weight: 81.737 kg Allergies Allergy/AdvReac Type Severity Reaction Status Date / Time No Known Allergies Allergy Mild Verified 04/18/23 09:24 Medications Home Medications Medication Instructions Recorded Confirmed Last Taken ferrous sulfate 325 mg (65 mg 325 mg PO Q OTHER DAY 04/19/23 04/19/23 04/19/23 08:00 iron) tablet vits no.124-ferrous fum 1 tab PO DAILY 04/19/23 04/19/23 04/19/23 08:00 27 mg iron-folic acid 800 mcg tablet ( Vitamin) Active Medications Generic Name Dose Route Start Last Admin Trade Name Freq PRN Reason Stop Dose Admin Lactated Ringer's 1,000 mls @ 125 mls/hr 04/19/23 15:25 04/19/23 20:20 Lr IV 04/21/23 15:24 999 mls/hr .Q8H PRN Infusion L&D Protocol Protocol Oxytocin 30 units in 500 mls @ 2 mls/hr 04/19/23 19:15 04/19/23 20:20 Pitocin 30 Units/Nss IV 04/21/23 19:14 0.12 units/hr .Q24H PRN 2 mls/hr Labor Induction/Augmentation Titration Protocol 0.12 UNITS/HR Past Medical History Medical History Biliary colic Varicella vaccine PCOS (polycystic ovarian syndrome) Past Family History Family History Brother Family history of reaction to anesthesia PONV Grandfather (Maternal) Myocardial infarction Mother Hypertension Denies family history of Ovarian cancer Diabetes Breast cancer Lung cancer Colorectal cancer Cancer Uterine cancer Past Surgical History Surgical History Hx laparoscopic cholecystectomy (12/07/21) Laparoscopic Cholecystectomy(Not Applicable) - Mckinley Smart MD, FACS Nausea and vomiting after administration of anesthetic agent AFTER BREAST REDUCTION S/P bilateral breast reduction 2018 History of wisdom tooth extraction 2009 History of tonsillectomy 1998 Social History Smoking Status: Never smoker Do You Dip or Chew Tobacco: No Hx Alcohol Use: No alcohol intake frequency: holidays/special occasions only Hx Substance Use: No substance use type: does not use Physical Exam Vital Signs Last Vital Signs Temp 36.6 C 04/19/23 19:01 Pulse 85 04/19/23 20:20 Resp 18 04/19/23 19:01 BP 124/68 04/19/23 19:02 Pulse Ox 98 04/19/23 20:20 Testing Laboratory Results 04/19/23 15:36 Blood Type A Positive 04/19/23 15:36 Antibody Screen NEGATIVE 04/19/23 15:36
[2023-04-19] MEDS: LIDOCAINE 2%/EPINEPHRINE 1:200,000 20 ML PF ONE (20:54)
[2023-04-19] MEDS: fentaNYL citrate PF 100 MCG/2 ML VIAL ONE (20:54)
[2023-04-19] MEDS: BUPIVACAINE 0.25% PF 30 ML VIAL ONE (20:54)
[2023-04-19] MEDS: fentANYL 2 MCG/ML BUPIVacaine 0.125%-NSS 100ML BAG ONE (20:55)
[2023-04-19] MEDS ORDERED: SODIUM CHLORIDE 0.9% PF INJ 10 ML VIAL EPI PRN (20:58)
[2023-04-19] MEDS ORDERED: ROPIVACAINE 0.5% PF 5 MG/ML 20 ML VIAL EPI PRN (20:58)
[2023-04-19] MEDS ORDERED: ONDANSETRON INJ 2 MG/ML 2 ML VIAL IV PRN (20:58)
[2023-04-19] MEDS ORDERED: LIDOCAINE 2% MPF LOCAL 5 ML VIAL EPI PRN (20:58)
[2023-04-19] MEDS ORDERED: fentANYL 2 MCG/ML BUPIVacaine 0.125%-NSS 100ML BAG EPI PRN (20:58)
[2023-04-19] MEDS ORDERED: BUPIVACAINE 0.25% PF 30 ML VIAL EPI PRN (20:58)
[2023-04-19] MEDS ORDERED: fentaNYL citrate PF 100 MCG/2 ML VIAL EPI PRN (20:58)
[2023-04-19] MEDS ORDERED: NALOXONE HCL 1 MG in SODIUM CHLORIDE 0.9% 1,000 ML IV PRN (20:58)
[2023-04-19] MEDS ORDERED: NALOXONE HCL 0.4 MG/1 ML VIAL/CARP IV PRN (20:58)
[2023-04-19] MEDS: ePHEDrine sulfate 50 MG/ML AMP IV PRN (21:11)
[2023-04-19] MEDS: BUPIVACAINE 0.25% PF 30 ML VIAL EPI STA (21:43)
[2023-04-19] MEDS: SODIUM CHLORIDE 0.9% PF INJ 10 ML VIAL EPI STA (21:43)
[2023-04-19] MEDS: SODIUM CHLORIDE 0.9% PF INJ 10 ML VIAL ONE (21:43)
[2023-04-19] MEDS: ePHEDrine sulfate 50 MG/ML AMP ONE (21:43)
[2023-04-19] MEDS: fentaNYL citrate PF 100 MCG/2 ML VIAL EPI STA (21:43)
[2023-04-19] MEDS: LIDOCAINE 2%/EPINEPHRINE 1:200,000 20 ML PF EPI STA (21:43)
--- NOTE | 2023-04-20 00:06 | Delivery Summary ---
Vaginal Delivery Summary Date of Service April 20, 2023 Vaginal Delivery Summary and 2nd Degree LAC Spontaneous vaginal delivery the patient arrived at 39+ weeks second baby group B strep negative with spontaneous rupture membranes augmentation of contractions with Pitocin was begun patient requested epidural rapidly progressed to fully dilated and she pushed over a total of 1 contraction delivering a baby in occiput anterior position head was delivered fluid was clear there was no nuchal cord gentle traction on the baby resulted in easy delivery no excessive force used live vigorous male infant cord clamped and cut cord blood obtained placenta removed by gentle traction IV Pitocin started uterine tone improved second- degree tear repaired with 3-0 Vicryl small right labial tear repaired with 3-0 Vicryl sponge and instrument counts correct estimated blood loss 200 mL [facility] Vaginal Delivery Charge Delivery Type Details: and 2nd Degree LAC
[2023-04-20] MEDS ORDERED: HYDROCORTISONE ACETATE 25 MG SUPP PR PRN (00:08)
[2023-04-20] MEDS ORDERED: OXYTOCIN 30 UNITS/NSS 30 UNITS/500 ML BAG IV PRN (00:08)
[2023-04-20] MEDS ORDERED: ACETAMINOPHEN 325 MG TAB PO PRN (00:08)
[2023-04-20] MEDS ORDERED: bisacodyL 10 MG SUPP PR PRN (00:08)
[2023-04-20] MEDS: DIPHTHER/TETAN/PERTUS Vaccine (Tdap, Adol/Adult) 0.5mL IM ONE (00:38)
[2023-04-20] MEDS: BENZOCAINE 20% SPRY 85 APPLN/85 GM CAN EXT PRN (02:19)
--- NOTE | 2023-04-20 06:59 | Obstetrical Progress Note ---
Date of Service April 20, 2023 Assessment & Plan (1) care and examination: Plan: Doing well Encourage ambulation Pain control Anticipate dc tomorrow Admission and Anticipated Discharge Date Admission Date: April 19, 2023 Supervising Physician Co-Signing Physician Notes Resident Physician Supervision Note: I was present with [Name of resident] during the history and exam. I discussed the case with the resident and agree with the findings and plan as documented in the note. Any exceptions or clarifications are listed here: [None] Documented By: Filemon Gardner MD, FACOG Subjective 27yo post day 1 s/p Ambulation: ambulating normally Voiding: no voiding problems Passing Gas:: Yes Diet Tolerance:: regular diet Lochia:: Small Feeding Type:: bottle feeding w/plan to pump Current Pain Level: moderate Resting comfortably this AM in NAD. Denies BARNEY, CP, SOB, N/V/D, LE pain/swelling. Review of Systems Review of Systems: reviewed, per HPI Physical Exam Physical Exam: General: patient resting comfortably, NAD, non-toxic in appearance, answers questions appropriately. Skin: warm, dry, intact HEENT: NC/AT, anicteric sclera, conjunctiva without injection, moist mucus membranes. Heart: +S1/S2, regular, no m/r/g Lungs: equal air entry bilaterally, no rales/rhonchi/wheezes Abd: +BS, soft, NT/ND, uterine fundus firm at umbilicus Ext: warm, no clubbing/cyanosis or edema, Kanika's neg. Neuro: nonfocal, speech intact, no facial droop, moving all extremities on command. Results & Data Vital Signs (Past 12 Hours) Vital Signs Temp Pulse Pulse Resp BP BP Pulse Ox 04/20/23 02:30 36.7 C 101 H 16 119/86 99 04/20/23 02:02 95 H 106/60 04/20/23 02:00 36.7 C 20 04/20/23 01:47 90 103/59 L 04/20/23 01:32 88 107/57 L 04/20/23 01:30 18 04/20/23 01:17 93 H 118/67 04/20/23 01:02 95 H 113/55 L 04/20/23 01:00 20 04/20/23 00:47 86 108/58 L 04/20/23 00:45 18 04/20/23 00:32 86 105/62 04/20/23 00:30 18 04/20/23 00:17 83 102/57 L 04/20/23 00:15 18 04/20/23 00:02 103 H 116/62 04/20/23 00:00 20 04/19/23 23:59 94 H 98 04/19/23 23:54 96 H 97 04/19/23 23:49 96 H 96 04/19/23 23:44 102 H 97 04/19/23 23:39 155 H 98 04/19/23 23:38 133 H 86 L 04/19/23 23:34 126 H 100 04/19/23 23:32 111 H 94 04/19/23 23:30 20 04/19/23 23:30 20 04/19/23 23:29 111 H 139/74 96 04/19/23 23:24 101 H 99 04/19/23 23:19 114 H 97 04/19/23 23:15 36.7 C 04/19/23 23:14 102 H 99 04/19/23 23:09 106 H 99 04/19/23 23:04 114 H 99 04/19/23 23:00 18 04/19/23 23:00 18 04/19/23 22:59 95 H 118/72 98 04/19/23 22:54 102 H 98 04/19/23 22:49 102 H 98 04/19/23 22:45 94 H 120/78 04/19/23 22:44 106 H 99 04/19/23 22:39 103 H 98 04/19/23 22:34 98 H 99 04/19/23 22:30 20 04/19/23 22:30 20 04/19/23 22:30 90 04/19/23 22:30 91 H 04/19/23 22:30 92 H 114/62 04/19/23 22:29 92 H 99 04/19/23 22:24 90 97 04/19/23 22:19 93 H 98 04/19/23 22:14 89 97 04/19/23 22:13 96 H 98/54 L 04/19/23 22:09 87 96 04/19/23 22:04 93 H 97 04/19/23 22:00 18 04/19/23 22:00 18 04/19/23 21:59 83 97 04/19/23 21:58 88 92/50 L 04/19/23 21:54 94 H 97 04/19/23 21:49 104 H 97 04/19/23 21:46 102 H 91/52 L 04/19/23 21:44 79 97 04/19/23 21:39 103 H 98 04/19/23 21:34 93 H 98 04/19/23 21:33 93 H 94 04/19/23 21:30 20 04/19/23 21:30 20 04/19/23 21:29 97 H 99 04/19/23 21:24 91 H 92/53 L 97 04/19/23 21:21 87 94/46 L 04/19/23 21:20 18 04/19/23 21:20 18 04/19/23 21:19 82 97 04/19/23 21:15 36.5 C 04/19/23 21:14 89 96/54 L 99 04/19/23 21:09 96 H 99 04/19/23 21:08 84 105/54 L 04/19/23 21:05 88 18 81/44 L 04/19/23 21:04 91 H 99 04/19/23 21:03 85 79/45 L 04/19/23 21:02 90 90/48 L 04/19/23 21:00 16 04/19/23 21:00 16 04/19/23 20:59 99 H 95/54 L 98 04/19/23 20:57 84 93/55 L 04/19/23 20:55 94 H 18 98/54 L 04/19/23 20:54 94 H 97 04/19/23 20:53 88 103/56 L 04/19/23 20:49 104 H 97 04/19/23 20:47 112 H 85 L 04/19/23 20:44 104 H 96 04/19/23 20:41 113 H 92 04/19/23 20:39 103 H 100 04/19/23 20:34 111 H 99 04/19/23 20:29 97 H 100 04/19/23 20:20 85 98 04/19/23 19:02 88 124/68 04/19/23 19:01 36.6 C 18 O2 Del Method 04/20/23 02:30 Room Air 04/20/23 02:02 04/20/23 02:00 04/20/23 01:47 04/20/23 01:32 04/20/23 01:30 04/20/23 01:17 04/20/23 01:02 04/20/23 01:00 04/20/23 00:47 04/20/23 00:45 04/20/23 00:32 04/20/23 00:30 04/20/23 00:17 04/20/23 00:15 04/20/23 00:02 04/20/23 00:00 04/19/23 23:59 04/19/23 23:54 04/19/23 23:49 04/19/23 23:44 04/19/23 23:39 04/19/23 23:38 04/19/23 23:34 04/19/23 23:32 04/19/23 23:30 04/19/23 23:30 04/19/23 23:29 04/19/23 23:24 04/19/23 23:19 04/19/23 23:15 04/19/23 23:14 04/19/23 23:09 04/19/23 23:04 04/19/23 23:00 04/19/23 23:00 04/19/23 22:59 04/19/23 22:54 04/19/23 22:49 04/19/23 22:45 04/19/23 22:44 04/19/23 22:39 04/19/23 22:34 04/19/23 22:30 04/19/23 22:30 04/19/23 22:30 04/19/23 22:30 04/19/23 22:30 04/19/23 22:29 04/19/23 22:24 04/19/23 22:19 04/19/23 22:14 04/19/23 22:13 04/19/23 22:09 04/19/23 22:04 04/19/23 22:00 04/19/23 22:00 04/19/23 21:59 04/19/23 21:58 04/19/23 21:54 04/19/23 21:49 04/19/23 21:46 04/19/23 21:44 04/19/23 21:39 04/19/23 21:34 04/19/23 21:33 04/19/23 21:30 04/19/23 21:30 04/19/23 21:29 04/19/23 21:24 04/19/23 21:21 04/19/23 21:20 04/19/23 21:20 04/19/23 21:19 04/19/23 21:15 04/19/23 21:14 04/19/23 21:09 04/19/23 21:08 04/19/23 21:05 04/19/23 21:04 04/19/23 21:03 04/19/23 21:02 04/19/23 21:00 04/19/23 21:00 04/19/23 20:59 04/19/23 20:57 04/19/23 20:55 04/19/23 20:54 04/19/23 20:53 04/19/23 20:49 04/19/23 20:47 04/19/23 20:44 04/19/23 20:41 04/19/23 20:39 04/19/23 20:34 04/19/23 20:29 04/19/23 20:20 04/19/23 19:02 04/19/23 19:01 Resident Activity Tracking Resident Involvement: Resident Care Provided Care Provided: Adult Hospital Medicine
[2023-04-20] MEDS: IBUPROFEN 600 MG TAB PO PRN (08:28)
[2023-04-20] MEDS: DOCUSATE SODIUM 100 MG CAP PO SCH (08:28)
[2023-04-20] MEDS: PRENATAL VITAMIN 1 TAB PO SCH (08:28)
--- NOTE | 2023-04-20 12:53 | Anesthesia Procedure Note ---
Date of Service April 20, 2023 Anesthesia Post Epidural Note Vital Signs Vital Signs: Temp Pulse Resp BP Pulse Ox O2 Del Method 36.6 C 90 18 126/79 99 Room Air 04/20/23 07:50 04/20/23 07:50 04/20/23 07:50 04/20/23 07:50 04/20/23 07:50 04/20/23 07:50 Notes Mental Status: alert / awake / arousable and participated in evaluation Nausea / Vomiting: adequately controlled Pain: adequately controlled Airway Patency, RR, SpO2: stable & adequate BP & HR: stable & adequate Hydration State: stable & adequate Neuraxial Anesthesia: was administered and sensory block is resolving Anesthetic Complications: no major complications apparent and Pt Satisfied with anesthetic care Epidural: Removed without complications and With tip intact
[2023-04-20] MEDS: MEASLES, MUMPS & RUBELLA VIRUS VACCINE (MMR) VIAL SQ ONE (17:57)
--- NOTE | 2023-04-21 06:17 | Obstetrical Progress Note ---
Date of Service April 21, 2023 Assessment & Plan (1) care and examination: Plan: Doing well Encourage ambulation Pain control dc today Admission and Anticipated Discharge Date Admission Date: April 19, 2023 Supervising Physician Co-Signing Physician Notes Resident Physician Supervision Note: I interviewed and examined the patient. Discussed with Dr. Poon and agree with findings and plan as documented in the note. Any exceptions or clarifications are listed here: PPD#2 doing well. DC home, followup 6w in office. Documented By: Camila El, Subjective 27yo post day 2 s/p Ambulation: ambulating normally Voiding: no voiding problems Passing Gas:: Yes Diet Tolerance:: regular diet Lochia:: Small Feeding Type:: bottle feeding w/plan to pump Current Pain Level: moderate Resting comfortably this AM in NAD. Denies BARNEY, CP, SOB, N/V/D, LE pain/swelling. Review of Systems Review of Systems: reviewed, per HPI Physical Exam Physical Exam: General: patient resting comfortably, NAD, non-toxic in appearance, answers questions appropriately. Skin: warm, dry, intact HEENT: NC/AT, anicteric sclera, conjunctiva without injection, moist mucus membranes. Heart: +S1/S2, regular, no m/r/g Lungs: equal air entry bilaterally, no rales/rhonchi/wheezes Abd: +BS, soft, NT/ND, uterine fundus firm at umbilicus Ext: warm, no clubbing/cyanosis or edema, Kanika's neg. Neuro: nonfocal, speech intact, no facial droop, moving all extremities on command. Results & Data Vital Signs (Past 12 Hours) Vital Signs Temp Pulse Resp BP Pulse Ox O2 Del Method 04/20/23 23:45 36.4 C L 88 18 116/79 97 Room Air 04/20/23 20:45 36.4 C L 92 H 18 138/77 98 Room Air Resident Activity Tracking Resident Involvement: Resident Care Provided Care Provided: Adult Hospital Medicine
[2023-04-21 06:53] LABS: Hematocrit (blood only) 29.3 % (37.0-47.0); Hemoglobin 9.4 g/dl (12.0-16.0); Mean Corpuscular Hemoglobin 28.9 pg (25.0-34.0); Mean Corpuscular Hgb Conc 32.1 g/dL (32.0-36.0); Mean Corpuscular Volume 90.2 fL (80.0-100.0); Mean Platelet Volume 11.4 fL (9.4-12.4); Platelet Count 232 K/uL (130-400); RDW Coefficient of Variation 13.3 % (11.5-14.5); RDW Standard Deviation 43.6 fL (36.4-46.3); Red Blood Count 3.25 M/uL (4.20-5.40); White Blood Count 10.41 K/ul (4.8-10.8)
[2023-04-21] MEDS: MEASLES, MUMPS & RUBELLA VIRUS VACCINE (MMR) VIAL ONE (07:23)
[2023-04-21] MEDS ORDERED: bisacodyL 5 MG TABEC PO SCH (20:00)
== END 2023-04-21 12:15 | disposition home or self-care (01) | DRG 807 ==
LOC: OPB 14:59 → 4S1 15:02 → 4E2 04-20 02:32